=== PATIENT | male | born 1955 ===

== ENCOUNTER 2020-04-03 07:40 | Day surgery (SDC) | payer OTHER | END 2020-04-03 16:09 | disposition home or self-care (01) | LOC: AMB-ENDOS 07:40 | PROVIDERS: ATTEND Colon & Rectal Surgery | DX: K62.1 Rectal polyp (principal); K64.8 Other hemorrhoids; Z20.828 Contact with and (suspected) exposure to other viral communicable diseases; Z12.11 Encounter for screening for malignant neoplasm of colon ==